=== PATIENT | female | born 1980 | race African-American/Black ===

== ENCOUNTER 2018-03-21 08:15 | Emergency (ER) | payer OTHER ==
[~2018-03-21] VITALS: Ht 162.6 cm; Wt 83.0 kg
[2018-03-21 09:04] VITALS: BP 162/99
== END 2018-03-21 09:14 | disposition home or self-care (01) ==
LOC: ER 08:15
DX: S60.444A External constriction of right ring finger, initial encounter (principal); Z88.8 Allergy status to other drugs, medicaments and biological substances; W49.04XA Ring or other jewelry causing external constriction, initial encounter; Y92.89 Other specified places as the place of occurrence of the external cause; Y93.89 Activity, other specified; Y99.8 Other external cause status

== ENCOUNTER 2018-09-22 08:27 | Emergency (ER) | payer OTHER ==
[~2018-09-22] VITALS: Ht 162.6 cm; Wt 80.3 kg
[2018-09-22 08:59] LABS: BASOPHILS 0.7 % (0.0-2.0); HEMATOCRIT 44.1 % (37.0-47.0); HEMOGLOBIN 15.1 gm/dL (12.0-15.0); MCH 30.8 pg (26.0-34.0); MCHC 34.3 g/dL (28.0-37.0); MCV 89.6 fL (80.0-100.0); MONOCYTES 5.7 % (1.0-8.0); PLATELET COUNT 193 thou/uL (150-400); POLYS 56.6 % (36.0-66.0); RBC 4.91 mil/uL (4.20-5.00); WBC 7.1 thou/uL (4.0-11.0)
[2018-09-22 09:11] LABS: ANION GAP 9 mmol/L (7-16); BUN 15 mg/dL (7-18); CALCIUM 8.4 mg/dL (8.5-10.1); CHLORIDE 102 mmol/L (98-107); CO2 25 mmol/L (21-32); CREATININE 0.7 mg/dL (0.6-1.0); GLUCOSE 94 mg/dL (74-106); POTASSIUM 3.9 mmol/L (3.5-5.1); SODIUM 136 mmol/L (136-145)
[2018-09-22 09:13] LABS: APTT 28.6 Seconds (24.5-32.8); PROTIME 9.8 Seconds (9.3-11.4)
[2018-09-22] MEDS ORDERED: LEVONORGESTREL1 EAC1 PO (09:16)
[2018-09-22 09:19] LABS: ALBUMIN 3.2 g/dL (3.4-5.0); MAGNESIUM 1.7 mg/dL (1.8-2.4); SGOT 18 U/L (15-37); SGPT 18 U/L (30-65); TOTAL BILIRUBIN 0.5 mg/dL (<0.1-1.0); TOTAL PROTEIN 7.9 g/dL (6.4-8.2); TROPONIN-I <0.06 ng/mL (<0.06)
[2018-09-22] MEDS ORDERED: ANTIVERT25 MG PO (09:22)
[2018-09-22] MEDS ORDERED: ATIVAN0.5 MG PO (09:22)
[2018-09-22 09:26] LABS: D-DIMER 0.23 ug/mLFEU (0.19-0.50)
[2018-09-22 09:46] VITALS: BP 156/92
[2018-09-22 09:59] LABS: LARGE PLATELETS RARE
--- NOTE | 2018-09-22 10:17 | EKG ---
[address] [address] [place] [address] ELECTROCARDIOGRAM REPORT Name: MAX BAILEY Room #: DEP [facility]#: [id number] Admission: 09/22/18 Attend Phys: Discharge: 09/22/18 Date of : 76 Report #: [id number] THIS REPORT FOR: //name// [facility] ED Test Date: 2018-09-22 Test Time: 08:59:06 Pat Name: MAX BAILEY Department: Room: Gender: F [employer]: : 1980 Requested By: Blayne Vieira Order Number: [id number] MD: Darrian Ruano Measurements Intervals Mallie Rate: 69 P: 60 NE: 118 QRS: 15 QRSD: 85 T: 16 QT: 388 QTc: 416 Interpretive Statements Sinus rhythm Normal tracing No previous ECG available for comparison Electronically Signed On 09-22-2018 10:17:45 [employer] by Darrian Ruano [email or web address] <ELECTRONICALLY SIGNED> By: Darrian Ruano MD, [facility] 09/22/18 [id number] Darrian Ruano MD, FACC /EPI
== END 2018-09-22 09:46 | disposition home or self-care (01) ==
LOC: ER 08:27
PROVIDERS: Emergency Medicine
DX: R42 Dizziness and giddiness (principal); F41.9 Anxiety disorder, unspecified; G47.00 Insomnia, unspecified; F45.8 Other somatoform disorders; Z88.8 Allergy status to other drugs, medicaments and biological substances